=== PATIENT | male | born 1985 | race Caucasian/White ===

== ENCOUNTER 2016-05-10 15:14 | Emergency (ER) | payer OTHER, SELFPAY ==
[2016-05-10] MEDS ORDERED: predniSONE 20 MG TAB As Ordered ONE (16:48)
[2016-05-10] MEDS ORDERED: ALBUTEROL SULFATE 2.5 MG/0.5 ML INH NEB SOLN As Ordered ONE (16:56)
--- NOTE | 2016-05-10 17:10 | REP ---
Clinical: Cough . Comparison: 02/14/2014 . Technique: PA and lateral. Findings: The mediastinum and cardiac silhouette are normal. The lung [place] are clear and without acute consolidation, effusion, or pneumothorax. The skeletal structures are intact and normal. Impression: 1. No acute cardiopulmonary process. Signed by Isaiah Beckman MD 05/10/2016 05:02 P
[2016-05-10] MEDS ORDERED: DOXYCYCLINE HYCLATE 100 MG TAB As Ordered ONE (17:46)
--- NOTE | 2016-05-10 17:54 | EDDOCDS ---
Physician Documentation [facility] Name: Jatin Huston Age: 30 yrs Sex: Male : 1985 Arrival Date: 05/10/2016 Time: 15:14 Bed PR Private MD: [facility] - Adults Disposition: 05/10/16 17:44 Discharged to Home/Self Care. Impression: Acute bronchitis. - Condition is Stable. - Discharge Instructions: Acute Bronchitis. - Prescriptions for Doxycycline Hyclate 100 mg Oral Tablet - take 1 tablet by ORAL route every 12 hours; 20 tablet. Prednisone 20 mg Oral Tablet - take 2 tablet by ORAL route once daily for 5 days; 10 tablet. Albuterol Sulfate 90 mcg/actuation Inhalation HFA Aerosol Inhaler - inhale 2 puff by INHALATION route every 4 hours As needed; 1 Inhaler. - Medication Reconciliation, Local Pharmacy Hours form. - Follow up: [facility] - Adults; When: 2 - 3 days; Reason: Recheck today's complaints, Continuance of care. - Problem is new. - Symptoms have improved. - Notes: USE MEDICATIONS INSTRUCTED, FOLLOW UP WITH YOUR PRIMARY DOCTOR, RETURN TO THE ER IF THE SYMPTOMS WORSEN OR BECOME CONCERNING Historical: - Allergies: no known allergies; - Home Meds: 1. Amoxicillin Unknown Oral 2. Albuterol Nebulizer - PMHx: none; - PSHx: none; - Social history: Smoking status: Chewing Tobacco No barriers to communication noted, The patient speaks fluent Algerian. - Family history: Not pertinent. - : The pt / caregiver states he / she is not on anticoagulants. Home medication list is obtained from the patient. - Exposure Risk Screening:: None identified. Vital Signs: 05/10 15:15 BP 145 / 88; Pulse 80; Resp 18 S; Temp 98.1(O); Pulse Ox 98% on R/A; Weight 90.72 kg / dd6 200 lbs (R); Height 6 ft. 2 in. (187.96 cm) (R); 17:47 BP 142 / 82; Pulse 77; Resp 18; Temp 97.6(O); Pulse Ox 98% on R/A; Pain 0/10; ct3 15:15 Body Mass Index 25.68 (90.72 kg, 187.96 cm) dd6 MDM: 16:43 Albuterol 2.5 mg Nebulizer once ordered. ck7 16:43 Call Respiratory ordered. ck7 16:43 predniSONE 40 mg PO once; administer with food or milk ordered. ck7 16:45 Chest, 2 View (pa\E\lat) Ordered. EDMS 16:47 Call Respiratory complete. ms18 17:32 Chest, 2 View (pa\E\lat) Reviewed. ck7 17:32 Doxycycline 100 mg PO once ordered. ck7 17:51 Financial registration complete. gjb Administered Medications: 16:51 Drug: predniSONE 40 mg [prednisone 20 mg tablet (2 tabs)] {Note: with crackers.} Route: kcs PO; 17:45 Follow up: Response: No Adverse Reaction ms18 17:07 Drug: Albuterol 2.5 mg [albuterol sulfate 2.5 mg/0.5 mL solution for nebulization (0.5 js11 mL)] Route: Nebulizer; 17:45 Follow up: Response: No Adverse Reaction ms18 17:52 Drug: Doxycycline 100 mg [doxycycline hyclate 100 mg tablet (1 tabs)] Route: PO; ms18 Signatures: Dispatcher [employer] EDGabriella August, RN FREDI dls Boris Poole, RPA-C RPA-Cck7 Chiquita Montaño RN RN ms18 Pita Fried Kacey RN kcs Sawyer, Jordan js11 MTDD
--- NOTE | 2016-05-10 17:54 | EDDOCDS ---
Nurse's Notes [facility] Name: Jatin Huston Age: 30 yrs Sex: Male : 1985 Arrival Date: 05/10/2016 Time: 15:14 Bed PR Private MD: [facility] - Adults Diagnosis: Acute bronchitis Presentation: 05/10 15:22 Presenting complaint: Patient states: Pt presents with coughing chest congestion fever dls body aches headache x 5 days. Adult Sepsis Screening: The patient does not have new or worsening altered mentation. Patient's respiratory rate is less than 22. Systolic blood pressure is greater than 100. Patient has a qSOFA score of 0- Negative Sepsis Screen. Suicide/Homicide risk assessment- the patient denies having any suicidal and/or homicidal ideations and does not present with any other emotional, behavioral or mental health complaints. Status: Patient is not a sales and service technician or dependent. Transition of care: patient was not received from another setting of care. 15:22 Acuity: PIERRE Level 4 dls 15:22 Method Of Arrival: Walkin/Carried/Asstd dls Triage Assessment: 15:25 General: Appears in no apparent distress, slender, Behavior is cooperative. Pain: Pain dls currently is 8 out of 10 on a pain scale. HIV screening NA for this visit Offered previously. Historical: - Allergies: no known allergies; - Home Meds: 1. Amoxicillin Unknown Oral 2. Albuterol Nebulizer - PMHx: none; - PSHx: none; - Social history: Smoking status: Chewing Tobacco No barriers to communication noted, The patient speaks fluent Turkmen. - Family history: Not pertinent. - : The pt / caregiver states he / she is not on anticoagulants. Home medication list is obtained from the patient. - Exposure Risk Screening:: None identified. Screenin:52 Screening information is obtained from the patient. Fall risk: No risks identified. ms18 Assistance ADL's: requires no assistance with activities of daily living. Abuse/DV Screen: The patient / caregiver reports he/she is: not in a situation that causes fear, pain or injury. Nutritional screening: No deficits noted. Advance Directives: There is no living will. home support is adequate. Assessment: 17:52 General: Appears in no apparent distress, comfortable, Behavior is appropriate for age, ms18 cooperative. Neurological: No deficits noted. Respiratory: Airway is patent Respiratory effort is even, unlabored, Reports cough that is. Derm: Skin is pink, warm & dry. normal. Vital Signs: 15:15 BP 145 / 88; Pulse 80; Resp 18 S; Temp 98.1(O); Pulse Ox 98% on R/A; Weight 90.72 kg dd6 (R); Height 6 ft. 2 in. (187.96 cm) (R); 17:47 BP 142 / 82; Pulse 77; Resp 18; Temp 97.6(O); Pulse Ox 98% on R/A; Pain 0/10; ct3 15:15 Body Mass Index 25.68 (90.72 kg, 187.96 cm) dd6 Vitals: 15:15 Log In Time: May 10, 2016 at 15:13. dd6 ED Course: 15:15 Patient visited by Seth Prado PCA. dd6 15:15 [facility] is Private Physician. dd6 15:15 Patient moved to Waiting dd6 15:17 Patient moved to Pre RCE dd6 15:24 Triage Initiated dls 16:27 Patient moved to Triage 3 ms18 16:35 [facility] 16:35 Arainna Ryan MD is Attending Physician. ck7 16:35 Patient visited by Boris Poole RPA-C. ck7 16:46 Patient moved to PR2 / 26 kcs 17:09 Patient visited by Deepika Jarquin PCA. ct3 17:26 Chest, 2 View (pa\E\lat) Returned. EDMS 17:43 Patient visited by Boris Poole RPA-C. ck7 17:44 [facility] is Referral Physician. ck7 17:48 Patient visited by Deepika Jarquin PCA. ct3 17:52 The patient / caregiver is instructed regarding the plan of care and ED course. Patient ms18 has correct armband on for positive identification. Property sent home with patient. :Personal belongings accompany Pt. 17:52 No IV's were initiated during this patient's visit. No procedures done that require ms18 assistance. Administered Medications: 16:51 Drug: predniSONE 40 mg [prednisone 20 mg tablet (2 tabs)] {Note: with crackers.} Route: kcs PO; 17:45 Follow up: Response: No Adverse Reaction ms18 17:07 Drug: Albuterol 2.5 mg [albuterol sulfate 2.5 mg/0.5 mL solution for nebulization (0.5 js11 mL)] Route: Nebulizer; 17:45 Follow up: Response: No Adverse Reaction ms18 17:52 Drug: Doxycycline 100 mg [doxycycline hyclate 100 mg tablet (1 tabs)] Route: PO; ms18 RT: 17:07 Initial Med Neb Given as ordered Patient was instructed and evaluated on procedure js11 Patient tolerated procedure well without adverse effect. Oxygen is room air. Respiratory: Breath sounds are coarse bilaterally. Breath sounds with wheezes bilaterally. at expiration. Order Results: Radiology Order: Chest, 2 View (pa\E\lat) Test: Chest, 2 View (pa\E\lat) REASON FOR EXAMINATION: Cough; Clinical: Cough .; ; Comparison: 02/14/2014 .; ; Technique: PA and lateral.; ; Findings:; The mediastinum and cardiac silhouette are normal. The lung [place] are clear and; without acute consolidation, effusion, or pneumothorax. The skeletal structures; are intact and normal.; ; Impression:; 1. No acute cardiopulmonary process.; ; ; Signed by; Isaiah Beckman MD 05/10/2016 05:02 P; Outcome: 17:44 Discharge ordered by Provider. ck7 17:52 Discharge Assessment: Patient awake, alert and oriented x 3. No cognitive and/or ms18 functional deficits noted. Patient verbalized understanding of disposition instructions. patient administered narcotics - no. The following High Risk Discharge criteria are identified: None. Discharged to home ambulatory. Condition: good Condition: stable Condition: improved. Discharge instructions given to patient, Instructed on discharge instructions, follow up and referral plans. medication usage, Demonstrated understanding of instructions, medications, Prescriptions given X 3. No special radiology studies were completed. 17:53 Patient left the ED. ms18 Signatures: Dispatcher [employer] Tonya Hager RN RN kcs Scott, Debra, RN RN dls Desormeau, Daniell, METAL INSPECTOR METAL INSPECTOR dd6 Deepika Jarquin, METAL INSPECTOR METAL INSPECTOR ct3 Lester Aguilar js11 Boris Poole RPA-C RPA-Cck7 Chiquita Montaño,RN RN ms18 MTDD
--- NOTE | 2016-05-12 18:54 | EDDOCDS ---
Physician Documentation [facility] Name: Jatin Huston Age: 30 yrs Sex: Male : 1985 Arrival Date: 05/10/2016 Time: 15:14 Bed PR Private MD: [facility] - Adults Disposition: 05/10/16 17:44 Discharged to Home/Self Care. Impression: Acute bronchitis. - Condition is Stable. - Discharge Instructions: Acute Bronchitis. - Prescriptions for Doxycycline Hyclate 100 mg Oral Tablet - take 1 tablet by ORAL route every 12 hours; 20 tablet. Prednisone 20 mg Oral Tablet - take 2 tablet by ORAL route once daily for 5 days; 10 tablet. Albuterol Sulfate 90 mcg/actuation Inhalation HFA Aerosol Inhaler - inhale 2 puff by INHALATION route every 4 hours As needed; 1 Inhaler. - Medication Reconciliation, Local Pharmacy Hours form. - Follow up: [facility] - Adults; When: 2 - 3 days; Reason: Recheck today's complaints, Continuance of care. - Problem is new. - Symptoms have improved. - Notes: USE MEDICATIONS INSTRUCTED, FOLLOW UP WITH YOUR PRIMARY DOCTOR, RETURN TO THE ER IF THE SYMPTOMS WORSEN OR BECOME CONCERNING Historical: - Allergies: no known allergies; - Home Meds: 1. Amoxicillin Unknown Oral 2. Albuterol Nebulizer - PMHx: none; - PSHx: none; - Social history: Smoking status: Chewing Tobacco No barriers to communication noted, The patient speaks fluent Kazakh. - Family history: Not pertinent. - : The pt / caregiver states he / she is not on anticoagulants. Home medication list is obtained from the patient. - Exposure Risk Screening:: None identified. Vital Signs: 05/10 15:15 BP 145 / 88; Pulse 80; Resp 18 S; Temp 98.1(O); Pulse Ox 98% on R/A; Weight 90.72 kg / dd6 200 lbs (R); Height 6 ft. 2 in. (187.96 cm) (R); 17:47 BP 142 / 82; Pulse 77; Resp 18; Temp 97.6(O); Pulse Ox 98% on R/A; Pain 0/10; ct3 15:15 Body Mass Index 25.68 (90.72 kg, 187.96 cm) dd6 MDM: 16:43 Albuterol 2.5 mg Nebulizer once ordered. ck7 16:43 Call Respiratory ordered. ck7 16:43 predniSONE 40 mg PO once; administer with food or milk ordered. ck7 16:45 Chest, 2 View (pa\E\lat) Ordered. EDMS 16:47 Call Respiratory complete. ms18 17:32 Chest, 2 View (pa\E\lat) Reviewed. ck7 17:32 Doxycycline 100 mg PO once ordered. ck7 17:51 Financial registration complete. gjb 17:55 [facility] Payment Agreement was scanned into [employer] and attached to record. [facility] 05/11 06:00 T-Sheet-- Draft Copy was scanned into [employer] and attached to record. lja Administered Medications: 05/10 16:51 Drug: predniSONE 40 mg [prednisone 20 mg tablet (2 tabs)] {Note: with crackers.} Route: kcs PO; 17:45 Follow up: Response: No Adverse Reaction ms18 17:07 Drug: Albuterol 2.5 mg [albuterol sulfate 2.5 mg/0.5 mL solution for nebulization (0.5 js11 mL)] Route: Nebulizer; 17:45 Follow up: Response: No Adverse Reaction ms18 17:52 Drug: Doxycycline 100 mg [doxycycline hyclate 100 mg tablet (1 tabs)] Route: PO; ms18 Signatures: Dispatcher [employer] Gabriella Dior, RN Boris Powell, MIKEY-C RPA-Cck7 Chiquita Montaño RN RN ms18 Arel, Pita Das Kacey RN kcs Sawyer, Jordan js11 The chart was reviewed and I authenticate all verbal orders and agree with the evaluation and treatment provided.Attachments: 17:55 [facility] Payment Agreement [facility] 05/11 06:00 T-Sheet-- Draft Copy rocio Chart Complete MTDD
--- NOTE | 2016-05-12 18:54 | EDDOCDS ---
Nurse's Notes [facility] Name: Jatin Huston Age: 30 yrs Sex: Male : 1985 Arrival Date: 05/10/2016 Time: 15:14 Bed PR Private MD: [facility] - Adults Diagnosis: Acute bronchitis Presentation: 05/10 15:22 Presenting complaint: Patient states: Pt presents with coughing chest congestion fever dls body aches headache x 5 days. Adult Sepsis Screening: The patient does not have new or worsening altered mentation. Patient's respiratory rate is less than 22. Systolic blood pressure is greater than 100. Patient has a qSOFA score of 0- Negative Sepsis Screen. Suicide/Homicide risk assessment- the patient denies having any suicidal and/or homicidal ideations and does not present with any other emotional, behavioral or mental health complaints. Status: Patient is not a coin machine servicer repairer or dependent. Transition of care: patient was not received from another setting of care. 15:22 Acuity: PIERRE Level 4 dls 15:22 Method Of Arrival: Walkin/Carried/Asstd dls Triage Assessment: 15:25 General: Appears in no apparent distress, slender, Behavior is cooperative. Pain: Pain dls currently is 8 out of 10 on a pain scale. HIV screening NA for this visit Offered previously. Historical: - Allergies: no known allergies; - Home Meds: 1. Amoxicillin Unknown Oral 2. Albuterol Nebulizer - PMHx: none; - PSHx: none; - Social history: Smoking status: Chewing Tobacco No barriers to communication noted, The patient speaks fluent Chinese. - Family history: Not pertinent. - : The pt / caregiver states he / she is not on anticoagulants. Home medication list is obtained from the patient. - Exposure Risk Screening:: None identified. Screenin:52 Screening information is obtained from the patient. Fall risk: No risks identified. ms18 Assistance ADL's: requires no assistance with activities of daily living. Abuse/DV Screen: The patient / caregiver reports he/she is: not in a situation that causes fear, pain or injury. Nutritional screening: No deficits noted. Advance Directives: There is no living will. home support is adequate. Assessment: 17:52 General: Appears in no apparent distress, comfortable, Behavior is appropriate for age, ms18 cooperative. Neurological: No deficits noted. Respiratory: Airway is patent Respiratory effort is even, unlabored, Reports cough that is. Derm: Skin is pink, warm & dry. normal. Vital Signs: 15:15 BP 145 / 88; Pulse 80; Resp 18 S; Temp 98.1(O); Pulse Ox 98% on R/A; Weight 90.72 kg dd6 (R); Height 6 ft. 2 in. (187.96 cm) (R); 17:47 BP 142 / 82; Pulse 77; Resp 18; Temp 97.6(O); Pulse Ox 98% on R/A; Pain 0/10; ct3 15:15 Body Mass Index 25.68 (90.72 kg, 187.96 cm) dd6 Vitals: 15:15 Log In Time: May 10, 2016 at 15:13. dd6 ED Course: 15:15 Patient visited by Seth Prado PCA. dd6 15:15 [facility] is Private Physician. dd6 15:15 Patient moved to Waiting dd6 15:17 Patient moved to Pre RCE dd6 15:24 Triage Initiated dls 16:27 Patient moved to Triage 3 ms18 16:35 [facility] ck[facility] 16:35 Arianna Ryan MD is Attending Physician. ck7 16:35 Patient visited by Boris Poole RPA-C. ck7 16:46 Patient moved to PR2 / 26 kcs 17:09 Patient visited by Deepika Jarquin PCA. ct3 17:26 Chest, 2 View (pa\E\lat) Returned. EDMS 17:43 Patient visited by Boris Poole RPA-C. ck7 17:44 [facility] is Referral Physician. ck7 17:48 Patient visited by Deepika Jarquin PCA. ct3 17:52 The patient / caregiver is instructed regarding the plan of care and ED course. Patient ms18 has correct armband on for positive identification. Property sent home with patient. :Personal belongings accompany Pt. 17:52 No IV's were initiated during this patient's visit. No procedures done that require ms18 assistance. 17:55 [facility] Payment Agreement was scanned into [employer] and attached to record. gjb 05/11 06:00 T-Sheet-- Draft Copy was scanned into [employer] and attached to record. tiffaniea Administered Medications: 05/10 16:51 Drug: predniSONE 40 mg [prednisone 20 mg tablet (2 tabs)] {Note: with crackers.} Route: kcs PO; 17:45 Follow up: Response: No Adverse Reaction ms18 17:07 Drug: Albuterol 2.5 mg [albuterol sulfate 2.5 mg/0.5 mL solution for nebulization (0.5 js11 mL)] Route: Nebulizer; 17:45 Follow up: Response: No Adverse Reaction ms18 17:52 Drug: Doxycycline 100 mg [doxycycline hyclate 100 mg tablet (1 tabs)] Route: PO; ms18 RT: 17:07 Initial Med Neb Given as ordered Patient was instructed and evaluated on procedure js11 Patient tolerated procedure well without adverse effect. Oxygen is room air. Respiratory: Breath sounds are coarse bilaterally. Breath sounds with wheezes bilaterally. at expiration. Order Results: Radiology Order: Chest, 2 View (pa\E\lat) Test: Chest, 2 View (pa\E\lat) REASON FOR EXAMINATION: Cough; Clinical: Cough .; ; Comparison: 02/14/2014 .; ; Technique: PA and lateral.; ; Findings:; The mediastinum and cardiac silhouette are normal. The lung [place] are clear and; without acute consolidation, effusion, or pneumothorax. The skeletal structures; are intact and normal.; ; Impression:; 1. No acute cardiopulmonary process.; ; ; Signed by; Isaiah Beckman MD 05/10/2016 05:02 P; Outcome: 17:44 Discharge ordered by Provider. ck7 17:52 Discharge Assessment: Patient awake, alert and oriented x 3. No cognitive and/or ms18 functional deficits noted. Patient verbalized understanding of disposition instructions. patient administered narcotics - no. The following High Risk Discharge criteria are identified: None. Discharged to home ambulatory. Condition: good Condition: stable Condition: improved. Discharge instructions given to patient, Instructed on discharge instructions, follow up and referral plans. medication usage, Demonstrated understanding of instructions, medications, Prescriptions given X 3. No special radiology studies were completed. 17:53 Patient left the ED. ms18 Signatures: Dispatcher [employer] Tonya Hager RN RN Gabriella Thorpe RN RN Seth Kebede, SOFT METALS HAND ENGRAVER SOFT METALS HAND ENGRAVER dd6 Deepika Jarquin, SOFT METALS HAND ENGRAVER SOFT METALS HAND ENGRAVER ct3 Lester Aguilar js11 Boris Poole, RPA-C RPA-Cck7 Chiquita Montaño,FREDI RN ms18 Arel, Pita Das Chart Complete MTDD
--- NOTE | 2016-05-12 18:54 | EDDOCDS ---
Physician Documentation [facility] Name: Jatin Huston Age: 30 yrs Sex: Male : 1985 Arrival Date: 05/10/2016 Time: 15:14 Bed PR Private MD: [facility] - Adults Disposition: 05/10/16 17:44 Discharged to Home/Self Care. Impression: Acute bronchitis. - Condition is Stable. - Discharge Instructions: Acute Bronchitis. - Prescriptions for Doxycycline Hyclate 100 mg Oral Tablet - take 1 tablet by ORAL route every 12 hours; 20 tablet. Prednisone 20 mg Oral Tablet - take 2 tablet by ORAL route once daily for 5 days; 10 tablet. Albuterol Sulfate 90 mcg/actuation Inhalation HFA Aerosol Inhaler - inhale 2 puff by INHALATION route every 4 hours As needed; 1 Inhaler. - Medication Reconciliation, Local Pharmacy Hours form. - Follow up: [facility] - Adults; When: 2 - 3 days; Reason: Recheck today's complaints, Continuance of care. - Problem is new. - Symptoms have improved. - Notes: USE MEDICATIONS INSTRUCTED, FOLLOW UP WITH YOUR PRIMARY DOCTOR, RETURN TO THE ER IF THE SYMPTOMS WORSEN OR BECOME CONCERNING Historical: - Allergies: no known allergies; - Home Meds: 1. Amoxicillin Unknown Oral 2. Albuterol Nebulizer - PMHx: none; - PSHx: none; - Social history: Smoking status: Chewing Tobacco No barriers to communication noted, The patient speaks fluent Sierra Leonean. - Family history: Not pertinent. - : The pt / caregiver states he / she is not on anticoagulants. Home medication list is obtained from the patient. - Exposure Risk Screening:: None identified. Vital Signs: 05/10 15:15 BP 145 / 88; Pulse 80; Resp 18 S; Temp 98.1(O); Pulse Ox 98% on R/A; Weight 90.72 kg / dd6 200 lbs (R); Height 6 ft. 2 in. (187.96 cm) (R); 17:47 BP 142 / 82; Pulse 77; Resp 18; Temp 97.6(O); Pulse Ox 98% on R/A; Pain 0/10; ct3 15:15 Body Mass Index 25.68 (90.72 kg, 187.96 cm) dd6 MDM: 16:43 Albuterol 2.5 mg Nebulizer once ordered. ck7 16:43 Call Respiratory ordered. ck7 16:43 predniSONE 40 mg PO once; administer with food or milk ordered. ck7 16:45 Chest, 2 View (pa\E\lat) Ordered. EDMS 16:47 Call Respiratory complete. ms18 17:32 Chest, 2 View (pa\E\lat) Reviewed. ck7 17:32 Doxycycline 100 mg PO once ordered. ck7 17:51 Financial registration complete. gjb 17:55 [facility] Payment Agreement was scanned into [employer] and attached to record. [facility] 05/11 06:00 T-Sheet-- Draft Copy was scanned into [employer] and attached to record. lja Administered Medications: 05/10 16:51 Drug: predniSONE 40 mg [prednisone 20 mg tablet (2 tabs)] {Note: with crackers.} Route: kcs PO; 17:45 Follow up: Response: No Adverse Reaction ms18 17:07 Drug: Albuterol 2.5 mg [albuterol sulfate 2.5 mg/0.5 mL solution for nebulization (0.5 js11 mL)] Route: Nebulizer; 17:45 Follow up: Response: No Adverse Reaction ms18 17:52 Drug: Doxycycline 100 mg [doxycycline hyclate 100 mg tablet (1 tabs)] Route: PO; ms18 Signatures: Dispatcher [employer] Gabriella Dior, RN Boris Powell, MIKEY-C RPA-Cck7 Chiquita Montaño RN RN ms18 Arel, Pita Das Kacey RN kcs Sawyer, Jordan js11 The chart was reviewed and I authenticate all verbal orders and agree with the evaluation and treatment provided.Attachments: 17:55 [facility] Payment Agreement [facility] 05/11 06:00 T-Sheet-- Draft Copy rocio Chart Complete MTDD
== END 2016-05-10 17:53 | disposition home or self-care (01) ==
LOC: M ED 15:14
DX: J20.9 Acute bronchitis, unspecified (principal); F17.228 Nicotine dependence, chewing tobacco, with other nicotine-induced disorders

== ENCOUNTER 2018-11-15 16:35 | Emergency (ER) | payer OTHER ==
[~2018-11-15] VITALS: Ht 188 cm; Wt 97.5 kg
[2018-11-15] MEDS ORDERED: MORPHINE 4 MG/ML 1ML VIAL/SYRINGE (J2270) IV ONE (18:30)
[2018-11-15] MEDS ORDERED: cefTRIAXone SOD 1 GM in D5W MINI-BAG PLUS 50 ML IV ONE (18:30)
[2018-11-15] MEDS ORDERED: NS 1,000 ML IV ONE (18:30)
[2018-11-15 18:41] LABS: BASO % 0.3 % (0.0-1.0); EOS # 0.1 10^3/uL (0.0-0.50); EOS % 0.5 % (0.0-3.0); HEMATOCRIT 44.4 % (42.0-52.0); HEMOGLOBIN 15.1 g/dl (13.5-17.5); LYMPH # 2.4 10^3/uL (1.5-4.5); LYMPH % 18.1 % (24.0-44.0); MEAN CORPUSCULAR HEMOGLOBIN 31.7 pg (27.0-33.0); MEAN CORPUSCULAR VOLUME 93.3 fl (80.0-96.0); MONO # 1.1 10^3/uL (0.0-0.8); MONO % 8.3 % (0.0-5.0); NEUTROPHILS # 9.5 10^3/uL (1.8-7.7); NEUTROPHILS % 72.5 % (36.0-66.0); PLATELET COUNT, AUTOMATED 214 10^3/uL (150-450); RED BLOOD COUNT 4.76 10^6/uL (4.30-6.10); WHITE BLOOD COUNT 13.2 10^3/uL (4.0-10.0)
[2018-11-15 19:13] LABS: ERYTHROCYTE SEDIMENTATION RATE 8 mm/hr (0-15)
--- NOTE | 2018-11-15 21:08 | REPVR ---
EXAM: US Duplex Right Upper Extremity Veins, Limited EXAM DATE/TIME: 11/15/2018 8:34 PM CLINICAL HISTORY: 33 years old, male; Pain; Arn, upper; Right; Additional info: PT tender throughout arm, R/O clot TECHNIQUE: Imaging protocol: Real-time Duplex ultrasound of the Right Upper Extremity with 2-D cotto scale, color Doppler flow and spectral waveform analysis. Limited exam focused on the right upper extremity veins. COMPARISON: No relevant prior studies available. FINDINGS: Right deep veins: Unremarkable. Axillary and brachial veins are patent throughout without thrombus. Normal Doppler waveforms. Normal compressibility and/or augmentation response. Visualized internal jugular and subclavian veins are patent. Right superficial veins: Unremarkable. Visualized cephalic and basilic veins are patent without thrombus. Soft tissues: Unremarkable. IMPRESSION: No acute findings. No evidence of deep vein thrombosis. Electronically signed by: Hao Jose On 11/15/2018 21:08:20 PM
[2018-11-15] MEDS ORDERED: AUGM875T28 PO (21:38)
[2018-11-15] MEDS ORDERED: AUGMENTIN 875 MG TAB PO ONE (21:45)
[2018-11-15 22:10] VITALS: BP 143/86
== END 2018-11-15 22:11 | disposition home or self-care (01) ==
LOC: M ED 16:35
DX: L03.113 Cellulitis of right upper limb (principal); F17.220 Nicotine dependence, chewing tobacco, uncomplicated
CPT/HCPCS: 80047; 83605; 85025; 85652; 86140; 87040; 93971; 96374; 96375; 99284; J0696; J2270

== ENCOUNTER 2021-02-16 14:26 | Emergency (ER) | payer OTHER ==
[~2021-02-16] VITALS: Ht 188 cm; Wt 108.3 kg
[~2021-02-16 14:26] MED LIST: AUGM875T28 PO
[2021-02-16 18:47] LABS: BASO % 0.4 % (0.0-1.0); EOS # 0.1 10^3/uL (0.0-0.5); EOS % 0.6 % (0.0-3.0); HEMATOCRIT 47.6 % (42.0-52.0); HEMOGLOBIN 15.7 g/dl (13.5-17.5); LYMPH # 2.6 10^3/uL (1.5-5.0); LYMPH % 30.5 % (24.0-44.0); MEAN CORPUSCULAR HEMOGLOBIN 30.3 pg (27.0-33.0); MEAN CORPUSCULAR VOLUME 91.7 fl (80.0-96.0); MONO # 0.6 10^3/uL (0.0-0.8); NEUTROPHILS # 5.3 10^3/uL (1.5-8.5); NEUTROPHILS % 61.3 % (36.0-66.0); PLATELET COUNT, AUTOMATED 255 10^3/uL (150-450); RED BLOOD COUNT 5.19 10^6/uL (4.30-6.10); WHITE BLOOD COUNT 8.6 10^3/uL (4.0-10.0)
[2021-02-16] MEDS ORDERED: ISOVUE-370 76% 100ML VIAL As Ordered ONE (19:12)
[2021-02-16 19:14] LABS: ALBUMIN 4.1 GM/DL (3.2-5.2); BILIRUBIN,DIRECT 0.1 MG/DL (0.0-0.2); BILIRUBIN,TOTAL 0.6 MG/DL (0.2-1.0); TOTAL PROTEIN 7.6 GM/DL (6.4-8.2)
--- NOTE | 2021-02-16 21:50 | REPVR ---
PROCEDURE INFORMATION: Exam: CT Abdomen And Pelvis With Contrast Exam date and time: 02/16/2021 8:14 PM Age: 35 years old Clinical indication: Abdominal pain; Localized; Left lower quadrant (llq); Additional info: Llq pain TECHNIQUE: Imaging protocol: Computed tomography of the abdomen and pelvis with contrast. Radiation optimization: All CT scans at this facility use at least one of these dose optimization techniques: automated exposure control; mA and/or kV adjustment per patient size (includes targeted exams where dose is matched to clinical indication); or iterative reconstruction. Contrast material: ISOVUE 370; Contrast volume: 100 ml; Contrast route: INTRAVENOUS (IV); COMPARISON: No relevant prior studies available. FINDINGS: Liver: The liver attenuation is 64 Hounsfield units and the spleen is 107 Hounsfield units although is in relatively arterial phase and not full portal venous phase acquisition. Gallbladder and bile ducts: Normal. No calcified stones. No ductal dilation. Pancreas: Normal. No ductal dilation. Spleen: See "Liver" finding. Adrenal glands: Normal. No mass. Kidneys and ureters: Normal. No hydronephrosis. Stomach and bowel: Unremarkable. No obstruction. No mucosal thickening. Appendix: A normal appendix is seen. Intraperitoneal space: Unremarkable. No free air. No significant fluid collection. Vasculature: Unremarkable. No abdominal aortic aneurysm. Lymph nodes: Unremarkable. No enlarged lymph nodes. Urinary bladder: Unremarkable as visualized. Reproductive: Unremarkable as visualized. Bones/joints: There appear to be old fractures at the costochondral junctions of the left 9th and 10th ribs. Soft tissues: Unremarkable. IMPRESSION: Negative CT abdomen/pelvis. Electronically signed by: Rivas Paula On 02/16/2021 21:49:38 PM
[2021-02-16 22:38] VITALS: BP 128/84
== END 2021-02-16 22:41 | disposition home or self-care (01) ==
LOC: M ED 14:26
DX: R10.9 Unspecified abdominal pain (principal); E78.5 Hyperlipidemia, unspecified; R51.9 Headache, unspecified; G40.909 Epilepsy, unspecified, not intractable, without status epilepticus; M54.9 Dorsalgia, unspecified; F41.9 Anxiety disorder, unspecified; F12.10 Cannabis abuse, uncomplicated; F17.200 Nicotine dependence, unspecified, uncomplicated
CPT/HCPCS: 74177; 80047; 80076; 81001; 83690; 85025; 87086; 99284; Q9967

== ENCOUNTER → 2023-02-09 | Outpatient (CLI) | payer OTHER ==
[~2023-02-09] MED LIST changes: +CEPH500T PO; +PERC5TAB12 PO
== END ==
LOC: M RAD 10:51
PROVIDERS: ATTEND Orthopaedic Surgery Hand Surgery
DX: S61.021A Laceration with foreign body of right thumb without damage to nail, initial encounter (principal); S66.021A Laceration of long flexor muscle, fascia and tendon of right thumb at wrist and hand level, initial encounter; X58.XXXA Exposure to other specified factors, initial encounter; Y92.9 Unspecified place or not applicable; Y93.9 Activity, unspecified; Y99.9 Unspecified external cause status; S66.011A Strain of long flexor muscle, fascia and tendon of right thumb at wrist and hand level, initial encounter

== ENCOUNTER 2023-02-16 07:17 | Day surgery (SDC) | payer OTHER ==
[~2023-02-16] VITALS: Ht 188 cm; Wt 94.8 kg
[~2023-02-16 07:17] MED LIST changes: +BACITRACIN OINTMENT 30GM TUBE As Ordered ONE; +ceFAZolin SOD 2 GM in IV 1 EA IV ONE
[2023-02-16] MEDS ORDERED: LR 1,000 ML IV SCH ×2 (07:30→10:55)
[2023-02-16] MEDS ORDERED: ALBUTEROL SULFATE 2.5MG/0.5ML INH NEB SOLN NEB PRN (08:00)
[2023-02-16] MEDS ORDERED: MIDAZOLAM INJ 2MG/2ML VIAL As Ordered ONE (08:54)
[2023-02-16] MEDS ORDERED: ACETAMINOPHEN 1000MG 100ML IV BAG As Ordered ONE (08:54)
[2023-02-16] MEDS ORDERED: propofoL 200 MG/20 ML VIAL As Ordered ONE (08:54)
[2023-02-16] MEDS ORDERED: LIDOCAINE 2% 100MG/5ML SDV (FOR ANES.) As Ordered ONE (08:54)
[2023-02-16] MEDS ORDERED: fentaNYL 100 MCG/2 ML INJECTION As Ordered ONE (08:54)
[2023-02-16] MEDS ORDERED: ONDANSETRON 4MG 2ML VIAL As Ordered ONE (08:54)
[2023-02-16] MEDS ORDERED: dexmedeTOMIDine (4MCG/ML)200MCG/50ML BTL (PRECEDEX) As Ordered ONE (08:56)
[2023-02-16] MEDS ORDERED: KETOROLAC 60MG 2ML VIAL As Ordered ONE (09:06)
[2023-02-16] MEDS ORDERED: HYDROmorphone HCL 2MG/ML 1ML VIAL As Ordered ONE (09:12)
[2023-02-16] MEDS ORDERED: MEPERIDINE 25 MG/ML 1ML VIAL IV PRN (10:55)
[2023-02-16] MEDS ORDERED: diphenhydrAMINE 50MG/ML VIAL IV PRN (10:55)
[2023-02-16] MEDS ORDERED: ONDANSETRON 4MG 2ML VIAL IV PRN (10:55)
[2023-02-16] MEDS ORDERED: METOCLOPRAMIDE INJ 10MG/2ML VIAL IV PRN (10:55)
[2023-02-16] MEDS ORDERED: PERCOCET PO (11:00)
[2023-02-16] MEDS: oxyCODONE 5MG TAB PO PRN ×2 (11:08→11:40)
[2023-02-16] MEDS: HYDROMORPHONE HCL 0.5 MG/ 0.5 ML SYRINGE IV PRN ×6 (11:09→12:05)
[2023-02-16 13:26] VITALS: BP 119/78; TEMP 96.9; O2SAT 97
== END 2023-02-16 13:28 | disposition home or self-care (01) ==
LOC: M SDC 07:17
PROVIDERS: ATTEND Orthopaedic Surgery Hand Surgery
DX: S56.011A Strain of flexor muscle, fascia and tendon of right thumb at forearm level, initial encounter (principal); X50.3XXA Overexertion from repetitive movements, initial encounter; Y92.9 Unspecified place or not applicable; Y99.9 Unspecified external cause status; F17.220 Nicotine dependence, chewing tobacco, uncomplicated
CPT/HCPCS: 26352; J0131; J0665; J1100; J1170; J1885; J2250; J2405; J3010

== ENCOUNTER 2023-04-25 19:32 | Emergency (ER) | payer OTHER ==
[~2023-04-25 19:32] MED LIST changes: -BACITRACIN OINTMENT 30GM TUBE As Ordered ONE; +PERCOCET PO; -ceFAZolin SOD 2 GM in IV 1 EA IV ONE
[2023-04-25] MEDS ORDERED: BOOSTRIX VACCINE (TETANUS/DIPHTH/ACEL. PERTUSSIS) 0.5ML SYR IM.IMMUN ONE (20:40)
[2023-04-25 21:47] VITALS: BP 124/88; TEMP 98.2; O2SAT 96
== END 2023-04-25 22:48 | disposition home or self-care (01) ==
LOC: EDBD 19:32 → M ED 19:32
DX: S01.01XA Laceration without foreign body of scalp, initial encounter (principal); S00.83XA Contusion of other part of head, initial encounter; S70.02XA Contusion of left hip, initial encounter; Y04.0XXA Assault by unarmed brawl or fight, initial encounter; F41.9 Anxiety disorder, unspecified; F32.A Depression, unspecified; E78.5 Hyperlipidemia, unspecified; F17.220 Nicotine dependence, chewing tobacco, uncomplicated; Z79.891 Long term (current) use of opiate analgesic

== ENCOUNTER 2023-05-03 13:36 | Emergency (ER) | payer OTHER ==
[~2023-05-03] VITALS: Ht 177.8 cm; Wt 97.8 kg
[2023-05-03 13:37] VITALS: TEMP 98.5
[2023-05-03 16:57] VITALS: BP 138/95; O2SAT 100
== END 2023-05-03 16:57 | disposition home or self-care (01) ==
LOC: M ED 13:36
DX: Z48.02 Encounter for removal of sutures (principal); G40.909 Epilepsy, unspecified, not intractable, without status epilepticus; E78.5 Hyperlipidemia, unspecified; F12.10 Cannabis abuse, uncomplicated; Z79.1 Long term (current) use of non-steroidal anti-inflammatories (NSAID)

== ENCOUNTER 2023-05-31 20:04 | Emergency (ER) | payer OTHER ==
[~2023-05-31] VITALS: Ht 188 cm; Wt 99.6 kg
[2023-05-31] MEDS ORDERED: LIDOCAINE 5% (LIDODERM) PATCH TD ONE (23:10)
[2023-05-31] MEDS ORDERED: KETOROLAC 30 MG/ML 1ML VIAL IM ONE (23:10)
[2023-05-31] MEDS ORDERED: diazePAM 5MG TABLET PO ONE (23:10)
[2023-06-01] MEDS ORDERED: MORPHINE 10 MG/ML 1ML VIAL IM ONE (01:00)
[2023-06-01] MEDS ORDERED: NAPR-837 PO (01:53)
[2023-06-01] MEDS ORDERED: METH-1164 PO (01:53)
[2023-06-01] MEDS ORDERED: MEDR4TAB PO (01:53)
[2023-06-01] MEDS ORDERED: tiZANidine 4 MG TAB PO ONE (01:55)
[2023-06-01] MEDS ORDERED: PILL CUTTER 1 EACH XX PRN (02:00)
[2023-06-01 02:39] VITALS: BP 128/85; TEMP 98.2; O2SAT 99
== END 2023-06-01 02:15 | disposition home or self-care (01) ==
LOC: M ED 20:04
DX: M54.32 Sciatica, left side (principal); M54.50 Low back pain, unspecified; E78.5 Hyperlipidemia, unspecified; F43.10 Post-traumatic stress disorder, unspecified; G40.909 Epilepsy, unspecified, not intractable, without status epilepticus; F12.10 Cannabis abuse, uncomplicated; F10.10 Alcohol abuse, uncomplicated; F17.220 Nicotine dependence, chewing tobacco, uncomplicated; Z79.1 Long term (current) use of non-steroidal anti-inflammatories (NSAID); Z79.899 Other long term (current) drug therapy
CPT/HCPCS: 72110; 96372; 99283; J1100; J1885

== ENCOUNTER → 2023-07-22 | Outpatient (CLI) | payer OTHER ==
[~2023-07-22] MED LIST changes: +MEDR4TAB PO; +METH-1164 PO; +NAPR-837 PO
== END ==
LOC: M PLARAD 09:57
PROVIDERS: ATTEND Physician Assistant
DX: M51.36 Other intervertebral disc degeneration, lumbar region (principal)

== ENCOUNTER → 2023-08-25 | Outpatient (REF) | payer OTHER ==
[2023-08-25 17:51] LABS: ALBUMIN 3.6 G/DL (3.2-5.2); ALKALINE PHOSPHATASE 75 U/L (46-116); ALT/SGPT 20 U/L (7.0-40); AST/SGOT 17 U/L (<34); BILIRUBIN,TOTAL 0.8 MG/DL (0.3-1.2); BLOOD UREA NITROGEN 9 MG/DL (9-23); CALCIUM LEVEL 9.7 MG/DL (8.5-10.1); CARBON DIOXIDE LEVEL 29 MMOL/L (20-31); CHLORIDE LEVEL 102 MMOL/L (98-107); CHOLESTEROL LEVEL 177 MG/DL (<200); CHOLESTEROL RISK RATIO 2.85 (<5); CREATININE FOR GFR 0.93 MG/DL (0.70-1.30); GLOMERULAR FILTRATION RATE > 60.0 (>60); GLUCOSE, FASTING 94 MG/DL (60-100); HDL CHOLESTEROL 61.9 MG/DL (>40); LDL CHOLESTEROL 100.3 MG/DL (<100); NON-HDL-C 115.1 MG/DL; POTASSIUM SERUM 4.8 MMOL/L (3.5-5.1); SODIUM LEVEL 139 MMOL/L (136-145); TOTAL 25(OH) VITAMIN D 22.9 NG/ML (20.0-100.0); TOTAL PROTEIN 7.1 G/DL (5.7-8.2); TRIGLYCERIDES LEVEL 74 MG/DL (<150)
[2023-08-25 18:16] LABS: HEMOGLOBIN A1c 5.3 % (4.0-6.0); HIV 1&2 SCREEN NEGATIVE (NEGATIVE)
[2023-08-25 18:23] LABS: HEPATITIS C VIRUS ABY INDEX < 0.02 INDEX (<0.8)
== END ==
LOC: M LAB REF 16:33
PROVIDERS: ATTEND Physician Assistant
DX: E55.9 Vitamin D deficiency, unspecified (principal); E66.3 Overweight; R03.0 Elevated blood-pressure reading, without diagnosis of hypertension; Z11.9 Encounter for screening for infectious and parasitic diseases, unspecified

== ENCOUNTER 2024-01-23 13:58 | Emergency (ER) | payer MEDICAID, OTHER, SELFPAY ==
[~2024-01-23] VITALS: Ht 188 cm; Wt 101.1 kg
[2024-01-23 13:58] VITALS: BP 129/84; TEMP 98; O2SAT 98
[2024-01-23] MEDS: LIDOCAINE W/EPINEPHRINE 1% 20ML VIAL SC ONE (17:10)
== END 2024-01-23 18:42 | disposition home or self-care (01) ==
LOC: M ED 13:58
DX: S61.511A Laceration without foreign body of right wrist, initial encounter (principal); W26.8XXA Contact with other sharp object(s), not elsewhere classified, initial encounter; Y92.9 Unspecified place or not applicable; Y93.9 Activity, unspecified; Y99.0 Civilian activity done for income or pay; E78.5 Hyperlipidemia, unspecified; R56.9 Unspecified convulsions; F41.9 Anxiety disorder, unspecified; F43.10 Post-traumatic stress disorder, unspecified; F17.200 Nicotine dependence, unspecified, uncomplicated; Z88.8 Allergy status to other drugs, medicaments and biological substances